=== PATIENT | female | born 1980 | race Caucasian/White ===

== ENCOUNTER 2024-05-20 16:55 | Emergency (ER) | payer OTHER, MEDICAID ==
[~2024-05-20] VITALS: Ht 152.4 cm; Wt 71.2 kg
[~2024-05-20 16:55] MED LIST: VIC PO
[2024-05-20 17:02] VITALS: BP 145/80; PULSE 66; TEMP 36.6; O2SAT 100; O2SAT 99
[2024-05-20] MEDS ORDERED: AMOX1TAB16 MT (21:23)
[2024-05-20] MEDS ORDERED: IBUP-2029 MT (21:26)
[2024-05-20] MEDS: AMOXICILLIN/POTASSIUM CLAVULANATE 875/125MG TAB PO ONE (21:37)
[2024-05-20] MEDS: HYDROCODONE/ACETAMINOPHEN 10/325MG TABLET PO ONE (21:38)
[2024-05-20] MEDS: IBUPROFEN 600MG TABLET PO ONE (21:38)
[2024-05-20] MEDS: TETANUS, DIPHTHERIA, PERTUSSIS VAC/PF 0.5ML (>10YR OLD) IM ONE (21:39)
== END 2024-05-20 21:49 | disposition home or self-care (01) ==
LOC: ER 17:26
DX: S61.451A Open bite of right hand, initial encounter (principal); Z79.899 Other long term (current) drug therapy; Z98.890 Other specified postprocedural states; W54.0XXA Bitten by dog, initial encounter; Y93.89 Activity, other specified; Y92.89 Other specified places as the place of occurrence of the external cause; Y99.8 Other external cause status
CPT/HCPCS: 90715; 90471; 99284; Z7610